=== PATIENT | female | born 1990 | race Caucasian/White ===

== ENCOUNTER 2017-01-03 10:19 | Inpatient (IN) | payer MEDICAID ==
[~2017-01-03] VITALS: Ht 152.4 cm; Wt 75.9 kg
[~2017-01-03 10:19] MED LIST: CITA10SO PO; DIVA250T PO; DOCU-138 PO; LAMO150T PO; MELO-106 PO; OMEG-31 PO; OMEP20CA10 PO; QUET300T2 PO; TOPI50TA24 PO; [UNRECOGNIZED DRUG - OTHER]
[2017-01-03] MEDS ORDERED: SODIUM CHLORIDE 0.9% 1,000 ML IV ONE (10:28)
[2017-01-03] MEDS ORDERED: PHENYTOIN SODIUM 1,000 MG in SODIUM CHLORIDE 0.9% 100 ML IV ONE (10:30)
[2017-01-03] MEDS ORDERED: CHLO100T22 PO (10:38)
[2017-01-03] MEDS ORDERED: BUSP10TA3 PO (10:38)
[2017-01-03] MEDS ORDERED: MIDO5TAB PO (10:38)
[2017-01-03] MEDS ORDERED: LEVE500T19 PO (10:38)
[2017-01-03] MEDS ORDERED: GUAN1TAB PO (10:38)
[2017-01-03] MEDS ORDERED: FAMO40TA7 PO (10:38)
[2017-01-03] MEDS ORDERED: TRAZ-129 PO (10:38)
[2017-01-03] MEDS ORDERED: BENZ1TAB7 PO (10:38)
[2017-01-03] MEDS ORDERED: SERT25TA74 PO (10:38)
[2017-01-03] MEDS ORDERED: LEVETIRACETAM 1,000 MG in SODIUM CHLORIDE 0.9% 100 ML IV ONE (11:00)
[2017-01-03 11:05] LABS: BASOPHILS % 0.6 % (0.0-2.0); EOSINOPHILS % 2.2 % (0.0-5.0); HEMATOCRIT. 34.3 % (36.0-48.0); HEMOGLOBIN. 11.3 g/dL (12.0-16.0); LYMPHOCYTES % 34.3 % (20.0-50.0); MEAN CORPUSCULAR HEMOGLOBIN 31.9 pg (28.0-32.0); MEAN CORPUSCULAR VOLUME 96.5 fL (81.0-99.0); MONOCYTES % 9.1 % (2.0-8.0); NEUTROPHILS % 53.8 % (40.0-76.0); RED BLOOD CELL COUNT 3.56 mill/uL (4.2-5.4); RED CELL DISTRIBUTION WIDTH 12.8 % (11.6-14.6)
[2017-01-03 11:27] LABS: CARBON DIOXIDE 23 mEq/L (21-32); CHLORIDE 107 mEq/L (98-107); ETHANOL BLOOD < 10 mg/dL
[2017-01-03 11:29] LABS: CARBAMAZEPINE < 0.5 ug/mL (4-12); PHENOBARBITAL < 2.1 ug/mL (15.0-40.0)
[2017-01-03 11:32] LABS: CLARITY URINE TURBID (CLEAR); COLOR URINE YELLOW (YELLOW); GLUCOSE URINE NEGATIVE (NEGATIVE); KETONES URINE NEGATIVE (NEGATIVE); LEUKOCYTE ESTERASE URINE 2+ (NEGATIVE); NITRITE URINE NEGATIVE (NEGATIVE); OCCULT BLOOD URINE 2+ (NEGATIVE); PH URINE 8.5 (4.5-8.0); PROTEIN URINE NEGATIVE (NEGATIVE); SPECIFIC GRAVITY URINE 1.017 (1.005-1.030)
[2017-01-03 11:35] LABS: HCG SCREEN NEGATIVE
[2017-01-03 11:43] LABS: *AMPHETAMINES SCREEN URINE NEGATIVE (NEGATIVE); *BARBITURATES SCREEN URINE NEGATIVE (NEGATIVE); *COCAINE SCREEN URINE NEGATIVE (NEGATIVE); CANNABINOID URINE SCREEN NEGATIVE (NEGATIVE); METHADONE URINE SCREEN NEGATIVE (NEGATIVE); OPIATES URINE SCREEN NEGATIVE (NEGATIVE); PHENCYCLIDINE URINE SCREEN NEGATIVE (NEGATIVE)
[2017-01-03 11:44] LABS: *BENZODIAZEPINES SCREEN URINE PRESUMTIVE POSITIVE (NEGATIVE)
[2017-01-03 12:36] LABS: AMMONIA 84 uMol/L (<32)
[2017-01-03 15:15] VITALS: BP 119/64
[2017-01-03] MEDS ORDERED: LORAZEPAM 2MG/ML CPJ IV PRN (15:15)
[2017-01-03 16:00] VITALS: BP 119/64
[2017-01-03] MEDS: DEXT 5%/0.45% NACL 1000ML 1,000 ML IV SCH (17:17)
[2017-01-03] MEDS: CEFTRIAXONE 1 G PREMIX 50 ML IV SCH (19:42)
[2017-01-03 20:00] VITALS: BP 102/62
[2017-01-03] MEDS: PHENYTOIN SODIUM 100MG/2ML VIAL IV SCH (21:47)
[2017-01-04] VITALS (8 sets, daily range): BP systolic 93–112; BP diastolic 33–59
[2017-01-04] MEDS: PHENYTOIN SODIUM 100MG/2ML VIAL IV SCH ×2 (06:14→14:23)
[2017-01-04] MEDS: DEXT 5%/0.45% NACL 1000ML 1,000 ML IV SCH (06:20)
[2017-01-04 07:30] LABS: HEMATOCRIT. 30.7 % (36.0-48.0); HEMOGLOBIN. 10.6 g/dL (12.0-16.0); PLATELET 157 x1000/uL (130-400); RED CELL DISTRIBUTION WIDTH 13.1 % (11.6-14.6)
[2017-01-04 08:08] LABS: CARBON DIOXIDE 23 mEq/L (21-32); CHLORIDE 108 mEq/L (98-107)
[2017-01-04 18:03] LABS: PLATELET ESTIMATE NORMAL
[2017-01-04] MEDS: CEFTRIAXONE 1 G PREMIX 50 ML IV SCH (19:44)
== END 2017-01-04 21:50 | disposition short-term general hospital (02) | DRG 53 ==
LOC: ER 10:19 → 8WST 12:29 → EDBEDREQTM 12:47 → EDBEDREQ 12:47 → ENRESERV 13:10 → 8WST 15:43
PROVIDERS: ADMIT Hospitalist; ATTEND Hospitalist
PROC: 05HY33Z Insertion of Infusion Device into Upper Vein, Percutaneous Approach (ICD-10-PCS; principal; 2017-01-03)
PROC: B54NZZA Ultrasonography of Left Upper Extremity Veins, Guidance (ICD-10-PCS; 2017-01-03)
DX: G40.901 Epilepsy, unspecified, not intractable, with status epilepticus (principal); F20.9 Schizophrenia, unspecified; D64.9 Anemia, unspecified; F31.9 Bipolar disorder, unspecified; J45.909 Unspecified asthma, uncomplicated; T42.6X5A Adverse effect of other antiepileptic and sedative-hypnotic drugs, initial encounter; Z79.899 Other long term (current) drug therapy; Z88.0 Allergy status to penicillin
CPT/HCPCS: 36415; 70450; 80053; 80156; 80165; 80184; 80185; 80305; 81001; 82140; 84703; 85007; 85025; 85027; 93005; 96361; 96365; 96375; 99291; G0482; J0696; J1165; J1953; J2060; J3490; J7030; J7050

== ENCOUNTER 2017-01-17 09:36 | Emergency (ER) | payer MEDICAID ==
[~2017-01-17] VITALS: Ht 167.6 cm; Wt 59.0 kg
[~2017-01-17 09:36] MED LIST changes: +BENZ1TAB7 PO; +BUSP10TA3 PO; +CHLO100T22 PO; +FAMO40TA7 PO; +GUAN1TAB PO; +LEVE500T19 PO; +MIDO5TAB PO; +SERT25TA74 PO; +TRAZ-129 PO
[2017-01-17 09:38] VITALS: BP 110/56
[2017-01-17] MEDS ORDERED: SODIUM CHLORIDE 0.9% 1,000 ML IV ONE (12:17)
== END 2017-01-17 12:33 | disposition left against medical advice (07) ==
LOC: ER 09:40
DX: R56.9 Unspecified convulsions (principal); J45.909 Unspecified asthma, uncomplicated; Z88.0 Allergy status to penicillin
CPT/HCPCS: 99283; J7030

== ENCOUNTER 2021-12-19 09:39 | Emergency (ER) | payer MEDICAID ==
[~2021-12-19] VITALS: Ht 157.5 cm; Wt 88.0 kg
[~2021-12-19 09:39] MED LIST changes: +DIVA-73 PO; -DIVA250T PO; -LAMO150T PO; +LAMO150T5 PO; -MIDO5TAB PO; +MIDO5TAB4 PO; -OMEP20CA10 PO; +OMEP20CA14 PO; -TRAZ-129 PO; +TRAZ-251 PO
[2021-12-19] MEDS ORDERED: DICYCLOMINE 10 MG/5 ML ORAL SYR PO STA (10:08)
[2021-12-19] MEDS ORDERED: ONDANSETRON 4MG ODT PO STA (10:08)
[2021-12-19] MEDS ORDERED: MAGNESIUM/ALUMINUM HYDROXIDE/SIMETHICONE 30ML UDC PO STA (10:08)
[2021-12-19] MEDS ORDERED: VISCOUS LIDOCAINE 2% 15 ML UDC PO STA (10:08)
[2021-12-19] MEDS ORDERED: MAGNESIUM/ALUMINUM HYDROXIDE/SIMETHICONE 30ML UDC PO NR (11:45)
[2021-12-19] MEDS ORDERED: DICYCLOMINE 10 MG/5 ML ORAL SYR PO NR (11:45)
[2021-12-19] MEDS ORDERED: ONDANSETRON 4MG ODT PO NR (11:47)
[2021-12-19] MEDS ORDERED: VISCOUS LIDOCAINE 2% 15 ML UDC PO NR (11:48)
[2021-12-19 12:43] LABS: BASOPHILS % 0.3 % (0.0-2.0); HEMATOCRIT. 36.3 % (36.0-48.0); HEMOGLOBIN. 12.2 g/dL (12.0-16.0); LYMPHOCYTES % 29.9 % (20.0-50.0); MEAN CORPUSCULAR HEMOGLOBIN 31.8 pg (28.0-32.0); MEAN CORPUSCULAR VOLUME 94.7 fL (81.0-99.0); MEAN PLATELET VOLUME 11.4 fl (7.4-10.4); MONOCYTES % 5.6 % (2.0-8.0); NEUTROPHILS % 64.2 % (40.0-76.0); PLATELET 235 x1000/uL (130-400); RED BLOOD CELL COUNT 3.83 mill/uL (4.2-5.4); RED CELL DISTRIBUTION WIDTH 14.4 % (11.6-14.6)
[2021-12-19 12:47] LABS: CHLORIDE 112 mEq/L (98-107)
[2021-12-19 12:49] LABS: PROTHROMBIN TIME 10.8 sec (9.6-11.0)
[2021-12-19 12:54] LABS: HCG SCREEN NEGATIVE
[2021-12-19 13:05] LABS: CLARITY URINE CLEAR (CLEAR); COLOR URINE ORANGE (YELLOW); KETONES URINE 1+ (NEGATIVE); LEUKOCYTE ESTERASE URINE TRACE (NEGATIVE); NITRITE URINE NEGATIVE (NEGATIVE); OCCULT BLOOD URINE NEGATIVE (NEGATIVE); PH URINE 6.5 (4.5-8.0); PROTEIN URINE NEGATIVE (NEGATIVE)
[2021-12-19 13:17] VITALS: BP 106/43
[2021-12-19] MEDS ORDERED: TOPUD PO (13:37)
== END 2021-12-19 14:35 | disposition home or self-care (01) ==
LOC: ER 09:39
DX: N20.0 Calculus of kidney (principal); J45.909 Unspecified asthma, uncomplicated; Z88.0 Allergy status to penicillin; Z79.899 Other long term (current) drug therapy; Z98.890 Other specified postprocedural states; Z86.59 Personal history of other mental and behavioral disorders
CPT/HCPCS: 36415; 74176; 80053; 81003; 81025; 83690; 84703; 85025; 85610; 99284; Q0162

== ENCOUNTER 2021-12-19 16:56 | Emergency (ER) | payer MEDICAID ==
[~2021-12-19] VITALS: Ht 152.4 cm; Wt 79.0 kg
[~2021-12-19 16:56] MED LIST changes: -CHLO100T22 PO; +CHLO100T35 PO; +TOPUD PO
[2021-12-19 17:17] VITALS: BP 114/53
== END 2021-12-19 23:29 | disposition home or self-care (01) ==
LOC: ER 16:56
DX: J45.909 Unspecified asthma, uncomplicated (principal); Z59.00 Homelessness unspecified; Z88.0 Allergy status to penicillin; Z79.899 Other long term (current) drug therapy; Z86.59 Personal history of other mental and behavioral disorders
CPT/HCPCS: 99281

== ENCOUNTER 2022-03-05 18:42 | Emergency (ER) | payer MEDICAID ==
[~2022-03-05] VITALS: Ht 170.2 cm; Wt 78.0 kg
[2022-03-05 18:50] VITALS: BP 110/70
[2022-03-05 21:35] LABS: HEMATOCRIT. 32.7 % (36.0-48.0); HEMOGLOBIN. 10.9 g/dL (12.0-16.0); MEAN CORPUSCULAR HEMOGLOBIN 31.5 pg (28.0-32.0); MEAN CORPUSCULAR VOLUME 94.8 fL (81.0-99.0); MEAN PLATELET VOLUME 11.3 fl (7.4-10.4); PLATELET 242 x1000/uL (130-400); RED BLOOD CELL COUNT 3.45 mill/uL (4.2-5.4); RED CELL DISTRIBUTION WIDTH 14.7 % (11.6-14.6)
[2022-03-05 21:43] LABS: HCG SCREEN NEGATIVE
[2022-03-05 23:37] LABS: PLATELET ESTIMATE NORMAL
[2022-03-06 01:09] LABS: CHLORIDE 108 mEq/L (98-107); ETHANOL BLOOD < 10 mg/dL
== END 2022-03-06 12:25 | disposition home or self-care (01) ==
LOC: ER 18:42
DX: R45.851 Suicidal ideations (principal); D64.9 Anemia, unspecified; J45.909 Unspecified asthma, uncomplicated; F31.9 Bipolar disorder, unspecified; F20.9 Schizophrenia, unspecified; Z79.899 Other long term (current) drug therapy
CPT/HCPCS: 36415; 80053; 80307; 80320; 80329; 84443; 84703; 85025; 99283; G0480

== ENCOUNTER 2022-04-06 09:57 | Emergency (ER) | payer MEDICAID ==
[~2022-04-06] VITALS: Ht 167.6 cm; Wt 73.0 kg
[2022-04-06] MEDS ORDERED: LORAZEPAM 1MG TABLET PO ONE (10:30)
[2022-04-06 10:57] LABS: CLARITY URINE CLEAR (CLEAR); COLOR URINE YELLOW (YELLOW); KETONES URINE NEGATIVE (NEGATIVE); LEUKOCYTE ESTERASE URINE NEGATIVE (NEGATIVE); NITRITE URINE NEGATIVE (NEGATIVE); OCCULT BLOOD URINE TRACE (NEGATIVE); PH URINE 7.5 (4.5-8.0); PROTEIN URINE NEGATIVE (NEGATIVE); SPECIFIC GRAVITY URINE 1.015 (1.005-1.030); UROBILINOGEN URINE 0.2 E.U./dL (0.2-1.0)
[2022-04-06 11:11] LABS: *AMPHETAMINES SCREEN URINE NEGATIVE (NEGATIVE); *BARBITURATES SCREEN URINE NEGATIVE (NEGATIVE); *BENZODIAZEPINES SCREEN URINE NEGATIVE (NEGATIVE); *COCAINE SCREEN URINE NEGATIVE (NEGATIVE); CANNABINOID URINE SCREEN NEGATIVE (NEGATIVE); METHADONE URINE SCREEN NEGATIVE (NEGATIVE); OPIATES URINE SCREEN NEGATIVE (NEGATIVE); PHENCYCLIDINE URINE SCREEN NEGATIVE (NEGATIVE)
[2022-04-06 11:30] LABS: HEMATOCRIT. 35.9 % (36.0-48.0); HEMOGLOBIN. 11.9 g/dL (12.0-16.0); MEAN CORPUSCULAR VOLUME 96.8 fL (81.0-99.0); MEAN PLATELET VOLUME 10.9 fl (7.4-10.4); PLATELET 216 x1000/uL (130-400); RED BLOOD CELL COUNT 3.71 mill/uL (4.2-5.4)
[2022-04-06 11:43] LABS: CHLORIDE 115 mEq/L (98-107)
[2022-04-06 11:51] LABS: ETHANOL BLOOD < 10 mg/dL
[2022-04-06 12:28] LABS: HCG SCREEN NEGATIVE
[2022-04-06 12:41] LABS: PLATELET ESTIMATE NORMAL
[2022-04-06] MEDS: OLANZAPINE 5MG TABLET ODT PO SCH (14:12)
[2022-04-07] MEDS: LEVETIRACETAM 500MG TABLET PO SCH ×2 (08:56→21:00)
[2022-04-07] MEDS: OLANZAPINE 5MG TABLET ODT PO SCH (09:13)
[2022-04-07] MEDS ORDERED: OLANZAPINE 5MG TABLET PO NR (14:38)
[2022-04-07] MEDS ORDERED: HALOPERIDOL LACTATE 5MG/ML VIAL IM ONE (15:15)
[2022-04-07] MEDS ORDERED: LORAZEPAM 2MG/ML CPJ IM ONE (15:45)
[2022-04-08 07:18] VITALS: BP 98/44
[2022-04-08] MEDS: OLANZAPINE 5MG TABLET ODT PO SCH (09:00)
[2022-04-08] MEDS: LEVETIRACETAM 500MG TABLET PO SCH (09:00)
== END 2022-04-08 09:41 | disposition home or self-care (01) ==
LOC: ER 10:09
DX: R45.851 Suicidal ideations (principal); D64.9 Anemia, unspecified; J45.909 Unspecified asthma, uncomplicated; F31.9 Bipolar disorder, unspecified; F20.9 Schizophrenia, unspecified; Z79.899 Other long term (current) drug therapy; Z20.822 Contact with and (suspected) exposure to COVID-19
CPT/HCPCS: 36415; 80053; 80305; 80307; 80320; 80329; 81003; 81025; 84703; 85025; 87426; 96372; 99285; C9803; J1630; J2060; Z7610; G0480

== ENCOUNTER 2022-08-29 23:18 | Emergency (ER) | payer MEDICAID ==
[~2022-08-29] VITALS: Ht 160 cm; Wt 90.7 kg
[~2022-08-29 23:18] MED LIST changes: -BENZ1TAB7 PO; +BENZ1TAB78 PO; +TOPI-255 PO; -TOPI50TA24 PO
[2022-08-30 00:49] LABS: CLARITY URINE CLOUDY (CLEAR); COLOR URINE ORANGE (YELLOW); HEMATOCRIT. 37.2 % (36.0-48.0); HEMOGLOBIN. 12.1 g/dL (12.0-16.0); KETONES URINE NEGATIVE (NEGATIVE); LEUKOCYTE ESTERASE URINE 1+ (NEGATIVE); MEAN CORPUSCULAR HEMOGLOBIN 30.8 pg (28.0-32.0); MEAN CORPUSCULAR VOLUME 94.4 fL (81.0-99.0); MEAN PLATELET VOLUME 11.4 fl (7.4-10.4); NITRITE URINE NEGATIVE (NEGATIVE); OCCULT BLOOD URINE NEGATIVE (NEGATIVE); PLATELET 249 x1000/uL (130-400); PROTEIN URINE NEGATIVE (NEGATIVE); RED BLOOD CELL COUNT 3.94 mill/uL (4.2-5.4); RED CELL DISTRIBUTION WIDTH 15.1 % (11.6-14.6); SPECIFIC GRAVITY URINE 1.019 (1.005-1.030); UROBILINOGEN URINE 0.2 E.U./dL (0.2-1.0)
[2022-08-30 00:55] LABS: CHLORIDE 110 mEq/L (98-107)
[2022-08-30 01:03] LABS: *AMPHETAMINES SCREEN URINE NEGATIVE (NEGATIVE); *BARBITURATES SCREEN URINE NEGATIVE (NEGATIVE); *BENZODIAZEPINES SCREEN URINE NEGATIVE (NEGATIVE); *COCAINE SCREEN URINE NEGATIVE (NEGATIVE); CANNABINOID URINE SCREEN NEGATIVE (NEGATIVE); METHADONE URINE SCREEN NEGATIVE (NEGATIVE); OPIATES URINE SCREEN NEGATIVE (NEGATIVE); PHENCYCLIDINE URINE SCREEN NEGATIVE (NEGATIVE)
[2022-08-30 01:04] LABS: ETHANOL BLOOD < 10 mg/dL
[2022-08-30 01:20] LABS: PLATELET ESTIMATE NORMAL
[2022-08-30 01:22] LABS: HCG SCREEN NEGATIVE
[2022-08-30] MEDS ORDERED: OLANZAPINE 5MG TABLET ODT PO SCH (12:30)
[2022-08-30 16:59] VITALS: BP 120/80
== END 2022-08-30 16:59 | disposition home or self-care (01) ==
LOC: ER 23:18
DX: R45.851 Suicidal ideations (principal); J45.909 Unspecified asthma, uncomplicated; Z20.822 Contact with and (suspected) exposure to COVID-19; Z88.0 Allergy status to penicillin; Z79.899 Other long term (current) drug therapy; Z86.59 Personal history of other mental and behavioral disorders; Z98.890 Other specified postprocedural states
CPT/HCPCS: 36415; 80053; 80305; 80307; 80320; 80329; 81003; 84703; 85025; 87426; 93005; 99285; C9803; G0480

== ENCOUNTER 2023-03-31 22:33 | Emergency (ER) | payer MEDICAID ==
[~2023-03-31] VITALS: Ht 157.5 cm; Wt 65.0 kg
[2023-03-31] MEDS ORDERED: ONDANSETRON HCL 4MG/2ML INJ IV STA (22:41)
[2023-03-31] MEDS ORDERED: ACETAMINOPHEN 325MG TABLET PO STA (22:41)
[2023-03-31] MEDS ORDERED: MAGNESIUM/ALUMINUM HYDROXIDE/SIMETHICONE 30ML UDC PO STA (22:41)
[2023-03-31] MEDS ORDERED: SODIUM CHLORIDE 0.9% 1,000 ML IV ONE (22:45)
[2023-03-31 22:46] VITALS: BP 102/61; PULSE 66; RESP 18; O2SAT 100
[2023-03-31 23:36] LABS: BASOPHILS % 0.7 % (0.0-2.0); EOSINOPHILS % 1.2 % (0.0-5.0); HEMATOCRIT. 38.6 % (36.0-48.0); HEMOGLOBIN. 12.4 g/dL (12.0-16.0); LYMPHOCYTES % 44.3 % (20.0-50.0); MEAN CORPUSCULAR HEMOGLOBIN 30.6 pg (28.0-32.0); MEAN CORPUSCULAR HGB CONC 32.2 g/dL (31.0-37.0); MEAN CORPUSCULAR VOLUME 94.9 fL (81.0-99.0); MEAN PLATELET VOLUME 11.7 fl (7.4-10.4); MONOCYTES % 10.6 % (2.0-8.0); NEUTROPHILS % 43.2 % (40.0-76.0); PLATELET 247 x1000/uL (130-400); RED BLOOD CELL COUNT 4.07 mill/uL (4.2-5.4); RED CELL DISTRIBUTION WIDTH 15.5 % (11.6-14.6); WHITE BLOOD COUNT 4.8 x1000/uL (4.5-11.0)
[2023-03-31 23:51] LABS: ALANINE AMINOTRANSFERASE 20 IU/L (10-49); ALBUMIN 4.7 g/dL (3.2-4.8); ASPARTATE AMINOTRANSFERASE 24 IU/L (<34); BILIRUBIN TOTAL 0.3 mg/dL (0.1-1.0); CALCIUM 9.4 mg/dL (8.7-10.4); CARBON DIOXIDE 23 mEq/L (21-32); CHLORIDE 108 mEq/L (98-107); CREATININE 0.8 mg/dL (0.6-1.0); GLUCOSE 67 mg/dL (70-105); POTASSIUM 3.2 mEq/L (3.5-5.1); PROTEIN TOTAL 8.8 g/dL (6.0-8.3); SODIUM 139 mEq/L (136-145); UREA NITROGEN BLOOD 13 mg/dL (9-23)
[2023-03-31 23:55] LABS: HCG SCREEN NEGATIVE
[2023-04-01 00:22] LABS: PROTHROMBIN TIME 10.3 sec (9.6-11.0)
[2023-04-01 00:31] LABS: ETHANOL BLOOD < 10 mg/dL (<10)
[2023-04-01] MEDS ORDERED: POTASSIUM CHLORIDE 20MEQ/PACKET PO NR (01:15)
[2023-04-01] MEDS ORDERED: ACETAMINOPHEN 325MG TABLET PO NR (04:15)
[2023-04-01] MEDS ORDERED: ONDANSETRON HCL 4MG/2ML INJ IV NR (04:15)
[2023-04-01] MEDS ORDERED: MAGNESIUM/ALUMINUM HYDROXIDE/SIMETHICONE 30ML UDC PO NR (04:15)
[2023-04-01 04:33] LABS: CLARITY URINE CLOUDY (CLEAR); COLOR URINE DARK YELLOW (YELLOW); GLUCOSE URINE NEGATIVE (NEGATIVE); KETONES URINE 1+ (NEGATIVE); LEUKOCYTE ESTERASE URINE NEGATIVE (NEGATIVE); NITRITE URINE NEGATIVE (NEGATIVE); OCCULT BLOOD URINE 2+ (NEGATIVE); PH URINE 6.5 (4.5-8.0); PROTEIN URINE TRACE (NEGATIVE); SPECIFIC GRAVITY URINE 1.034 (1.005-1.030)
[2023-04-01 04:44] LABS: *AMPHETAMINES SCREEN URINE NEGATIVE (NEGATIVE); *BARBITURATES SCREEN URINE NEGATIVE (NEGATIVE); *BENZODIAZEPINES SCREEN URINE NEGATIVE (NEGATIVE); *COCAINE SCREEN URINE NEGATIVE (NEGATIVE); CANNABINOID URINE SCREEN NEGATIVE (NEGATIVE); ECSTASY MDMA SCREEN URINE NEGATIVE (NEGATIVE); METHADONE URINE SCREEN Neg (NEGATIVE); OPIATES URINE SCREEN NEGATIVE (NEGATIVE); PHENCYCLIDINE URINE SCREEN NEGATIVE (NEGATIVE)
[2023-04-01 04:46] VITALS: TEMP 98.3
[2023-04-01] MEDS ORDERED: ONDANSETRON 4MG ODT PO ONE (05:00)
[2023-04-01] MEDS ORDERED: POTA-204 MT (05:29)
[2023-04-01] MEDS ORDERED: ONDA4TAB50 MT (05:29)
[2023-04-01 05:50] LABS: SQUAMOUS EPITHELIAL CELL URINE FEW /lpf (RARE/1+)
[2023-04-01 05:51] LABS: WBC URINE 0-2 /hpf (0-2)
[2023-04-01 06:00] LABS: BACTERIA URINE NONE SEEN
== END 2023-04-01 04:00 | disposition home or self-care (01) ==
LOC: ER 22:33
DX: R10.84 Generalized abdominal pain (principal); R11.2 Nausea with vomiting, unspecified; E87.6 Hypokalemia; D64.9 Anemia, unspecified; J45.909 Unspecified asthma, uncomplicated; F31.9 Bipolar disorder, unspecified; F20.9 Schizophrenia, unspecified; Z79.899 Other long term (current) drug therapy; Z20.822 Contact with and (suspected) exposure to COVID-19
CPT/HCPCS: 80053; 80320; 84703; 83605; 83690; 85025; 85610; 36415; 74176; 99285; 80305; 81003; 87804 ×2; 96374; 87426; J7030; C9803; J2405; Z7610; G0480

== ENCOUNTER 2023-05-08 09:42 | Emergency (ER) | payer MEDICAID ==
[~2023-05-08] VITALS: Ht 165.1 cm; Wt 90.0 kg
[~2023-05-08 09:42] MED LIST changes: +ONDA4TAB50 MT; +POTA-204 MT
[2023-05-08 09:53] VITALS: O2SAT 96
[2023-05-08 10:49] LABS: CLARITY URINE CLOUDY (CLEAR); COLOR URINE DARK YELLOW (YELLOW); GLUCOSE URINE NEGATIVE (NEGATIVE); KETONES URINE 1+ (NEGATIVE); LEUKOCYTE ESTERASE URINE TRACE (NEGATIVE); NITRITE URINE NEGATIVE (NEGATIVE); OCCULT BLOOD URINE NEGATIVE (NEGATIVE); PH URINE 6.5 (4.5-8.0); PROTEIN URINE TRACE (NEGATIVE); SPECIFIC GRAVITY URINE 1.031 (1.005-1.030)
[2023-05-08 11:20] LABS: BASOPHILS % 0.7 % (0.0-2.0); HEMATOCRIT. 37.9 % (36.0-48.0); HEMOGLOBIN. 12.5 g/dL (12.0-16.0); LYMPHOCYTES % 48.5 % (20.0-50.0); MEAN CORPUSCULAR HEMOGLOBIN 30.2 pg (28.0-32.0); MEAN CORPUSCULAR VOLUME 91.4 fL (81.0-99.0); MEAN PLATELET VOLUME 11.4 fl (7.4-10.4); MONOCYTES % 7.8 % (2.0-8.0); PLATELET 242 x1000/uL (130-400); RED BLOOD CELL COUNT 4.15 mill/uL (4.2-5.4); RED CELL DISTRIBUTION WIDTH 14.2 % (11.6-14.6); WHITE BLOOD COUNT 4.6 x1000/uL (4.5-11.0)
[2023-05-08 11:26] LABS: MUCUS URINE 2+ /lpf (< = 2+); SQUAMOUS EPITHELIAL CELL URINE 3+ /lpf (RARE/1+)
[2023-05-08 11:27] LABS: RBC URINE NONE SEEN /hpf (0-2)
[2023-05-08 11:28] LABS: BACTERIA URINE 3+; CALCIUM OXALATE CRYSTALS URINE 2+ /lpf
[2023-05-08 11:31] LABS: HCG SCREEN NEGATIVE
[2023-05-08 11:34] LABS: ALANINE AMINOTRANSFERASE 21 IU/L (10-49); ALBUMIN 4.5 g/dL (3.2-4.8); ASPARTATE AMINOTRANSFERASE 27 IU/L (<34); BILIRUBIN TOTAL 0.3 mg/dL (0.1-1.0); CALCIUM 9.5 mg/dL (8.7-10.4); CARBON DIOXIDE 21 mEq/L (21-32); CHLORIDE 109 mEq/L (98-107); CREATININE 0.7 mg/dL (0.6-1.0); GLUCOSE 106 mg/dL (70-105); POTASSIUM 3.1 mEq/L (3.5-5.1); PROTEIN TOTAL 8.5 g/dL (6.0-8.3); SODIUM 139 mEq/L (136-145); UREA NITROGEN BLOOD 15 mg/dL (9-23)
[2023-05-08 11:36] LABS: ETHANOL BLOOD < 10 mg/dL (<10)
[2023-05-08 12:07] LABS: *AMPHETAMINES SCREEN URINE NEGATIVE (NEGATIVE); *BARBITURATES SCREEN URINE NEGATIVE (NEGATIVE); *BENZODIAZEPINES SCREEN URINE NEGATIVE (NEGATIVE); *COCAINE SCREEN URINE NEGATIVE (NEGATIVE); CANNABINOID URINE SCREEN NEGATIVE (NEGATIVE); ECSTASY MDMA SCREEN URINE NEGATIVE (NEGATIVE); METHADONE URINE SCREEN Neg (NEGATIVE); OPIATES URINE SCREEN NEGATIVE (NEGATIVE); PHENCYCLIDINE URINE SCREEN NEGATIVE (NEGATIVE)
[2023-05-09 05:08] VITALS: BP 98/52; PULSE 70; RESP 18; TEMP 97.8
== END 2023-05-09 16:37 ==
LOC: ER 10:34
DX: F20.9 Schizophrenia, unspecified (principal); J45.909 Unspecified asthma, uncomplicated; F31.9 Bipolar disorder, unspecified; D64.9 Anemia, unspecified; Z98.890 Other specified postprocedural states; Z88.0 Allergy status to penicillin
CPT/HCPCS: 36415; 80053; 80305; 80320; 81003; 84703; 85025; 99285; G0480